=== PATIENT | male | born 1990 | race American Indian/Alaskan Native ===

== ENCOUNTER 2021-06-02 16:25 | Emergency (ER) | payer SELFPAY ==
[2021-06-02 16:44] VITALS: BP 119/67
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
== END 2021-06-02 18:54 | disposition home or self-care (01) ==
LOC: ED 16:25
DX: S92.001A Unspecified fracture of right calcaneus, initial encounter for closed fracture (principal); S91.331D Puncture wound without foreign body, right foot, subsequent encounter; X58.XXXA Exposure to other specified factors, initial encounter; Y93.89 Activity, other specified; Y92.89 Other specified places as the place of occurrence of the external cause; Y99.8 Other external cause status
CPT/HCPCS: 99282